=== PATIENT | male | born 1955 | race Hispanic/Latino ===

== ENCOUNTER 2024-07-15 20:05 | Inpatient (IN) | payer OTHER ==
[~2024-07-15] VITALS: Ht 172.7 cm; Wt 104.3 kg
[2024-07-15 20:20] VITALS: PULSE 83; RESP 18; TEMP 99.4
[2024-07-15] MEDS ORDERED: ONDANSETRON HCL INJ 2MG/ML 2ML 2 MG/ML VIAL IV PRN (22:00)
[2024-07-15] MEDS: SODIUM CHLORIDE 0.9% 1000ML 500 ML IV ONE (22:30)
[2024-07-15] MEDS: SODIUM CHLORIDE 0.9% 1000ML 1,000 ML IV SCH (23:40)
[2024-07-15] MEDS ORDERED: FLOMAX0.4 MG PO (23:46)
[2024-07-15] MEDS ORDERED: TIZANIDINE HCL4 MG PO (23:46)
[2024-07-15] MEDS ORDERED: LISINOPRIL10 MG PO (23:46)
[2024-07-16] VITALS (10 sets, daily range): BP systolic 94–130; BP diastolic 63–83; PULSE 74–104; RESP 18–22; TEMP 97.8–103.1; O2SAT 91–96
[2024-07-16] MEDS: ACETAMINOPHEN 325 MG TAB PO PRN (01:20)
[2024-07-16 12:23] LABS: BASOPHILS % 0.2 % (0.0-1.0); HEMATOCRIT 40.2 % (38.2-49.6); HEMOGLOBIN 13.2 g/dL (14.0-18.0); LYMPHOCYTES # (AUTO) 0.7 (1.0-3.2); LYMPHOCYTES % 14.7 % (18.0-39.1); MEAN CORPUSCULAR HEMOGLOBIN 29.8 pg (28-32); MEAN CORPUSCULAR HGB CONC 32.8 g/dL (31-35); MEAN CORPUSCULAR VOLUME 90.7 fL (81-99); MONOCYTES # (AUTO) 0.1 (0.2-0.8); MONOCYTES % 2.4 % (4.4-11.3); NEUTROPHILS # (AUTO) 3.9 (2.1-6.9); NEUTROPHILS % 82.5 % (38.7-80.0); RED BLOOD COUNT 4.43 x10e6/uL (4.3-5.7); RED CELL DISTRIBUTION WIDTH 13.1 % (11.7-14.4); WHITE BLOOD COUNT 4.68 x10e3/uL (4.8-10.8)
[2024-07-16] MEDS: GUAIFENESIN/DEXTROMETHORPHAN LIQD 5 ML UDC NG PRN (12:32)
[2024-07-16] MEDS: BENZONATATE 100 MG CAP PO PRN (12:33)
[2024-07-16 12:34] LABS: PLATELET COUNT 113 x10e3/uL (140-360)
[2024-07-16 12:43] LABS: ALBUMIN 3.2 g/dL (3.5-5.0); ALBUMIN/GLOBULIN RATIO 0.8 (0.8-2.0); ANION GAP 16.8 mmol/L (8-16); BILIRUBIN,TOTAL 0.5 mg/dL (0.2-1.2); CALCIUM 8.1 mg/dL (8.4-10.2); CREATININE, SERUM 1.3 mg/dL (0.72-1.25); MAGNESIUM 1.8 MG/DL (1.3-2.1); PHOSPHORUS 1.9 MG/DL (2.3-4.7); POTASSIUM 3.8 mmol/L (3.5-5.1); TOTAL PROTEIN 7.1 g/dL (6.5-8.1)
[2024-07-16 13:37] LABS: LYMPHOCYTES % (MANUAL) 20 % (19-48); MONOCYTES % (MANUAL) 3 % (3.4-9.0); NEUTROPHILS % (MANUAL) 75 % (40-74); PLATELET ESTIMATE SLIGHTLY DECREASED; PLATELET MORPHOLOGY COMMENT NORMAL; REACTIVE LYMPHOCYTES 2
[2024-07-16] MEDS ORDERED: SODIUM CHLORIDE 0.9% 250ML 250 ML ONE (20:04)
[2024-07-16] MEDS: TIZANIDINE HCL 4 MG TAB PO SCH (20:35)
[2024-07-17] VITALS (13 sets, daily range): BP systolic 96–120; BP diastolic 65–76; PULSE 63–94; RESP 18–20; TEMP 97–99.9; O2SAT 90–98
[2024-07-17 06:01] LABS: HEMATOCRIT 34.9 % (38.2-49.6); HEMOGLOBIN 11.6 g/dL (14.0-18.0); LYMPHOCYTES # (AUTO) 0.8 (1.0-3.2); LYMPHOCYTES % 13.2 % (18.0-39.1); MEAN CORPUSCULAR HEMOGLOBIN 29.4 pg (28-32); MEAN CORPUSCULAR HGB CONC 33.2 g/dL (31-35); MEAN CORPUSCULAR VOLUME 88.4 fL (81-99); MONOCYTES # (AUTO) 0.1 (0.2-0.8); MONOCYTES % 1.4 % (4.4-11.3); NEUTROPHILS # (AUTO) 4.8 (2.1-6.9); NEUTROPHILS % 84.9 % (38.7-80.0); PLATELET COUNT 118 x10e3/uL (140-360); RED BLOOD COUNT 3.95 x10e6/uL (4.3-5.7); RED CELL DISTRIBUTION WIDTH 13.2 % (11.7-14.4); WHITE BLOOD COUNT 5.68 x10e3/uL (4.8-10.8)
[2024-07-17 06:41] LABS: ALBUMIN 2.7 g/dL (3.5-5.0); ALBUMIN/GLOBULIN RATIO 0.8 (0.8-2.0); ANION GAP 16.1 mmol/L (8-16); BILIRUBIN,TOTAL 0.6 mg/dL (0.2-1.2); CALCIUM 7.9 mg/dL (8.4-10.2); CREATININE, SERUM 1.3 mg/dL (0.72-1.25); POTASSIUM 4.1 mmol/L (3.5-5.1); TOTAL PROTEIN 6.2 g/dL (6.5-8.1)
[2024-07-17] MEDS: TAMSULOSIN HCL 0.4 MG CAP PO SCH (08:51)
[2024-07-17] MEDS: LISINOPRIL 20 MG TAB PO SCH (08:52)
[2024-07-17 10:54] LABS: LYMPHOCYTES % (MANUAL) 10 % (19-48); MONOCYTES % (MANUAL) 2 % (3.4-9.0); NEUTROPHILS % (MANUAL) 82 % (40-74); REACTIVE LYMPHOCYTES 2
[2024-07-17 10:55] LABS: BAND NEUTROPHILS % (MANUAL) 4 %; PLATELET ESTIMATE SLIGHTLY DECREASED; PLATELET MORPHOLOGY COMMENT NORMAL
[2024-07-17] MEDS: ALBUTEROL/IPRATROPIUM 3 ML NEB ONE (12:06)
[2024-07-17] MEDS: ALBUTEROL/IPRATROPIUM 3 ML NEB NEB SCH (12:19)
[2024-07-18] VITALS (19 sets, daily range): BP systolic 101–163; BP diastolic 68–96; PULSE 63–101; RESP 16–32; TEMP 97.8–99.3; O2SAT 87–99
[2024-07-18] MEDS: FLUTICASONE PROPIONATE NASAL SPRAY NS SCH (16:47)
[2024-07-18] MEDS: METHYLPREDNISOLONE SOD SUCC 125 MG/2ML VIAL IV ONE (16:47)
[2024-07-18] MEDS: OSELTAMIVIR PHOSPHATE 75 MG CAP PO SCH (16:47)
[2024-07-18] MEDS ORDERED: IOPAMIDOL 370 MG/ML 100 ML INFUS..BTL INJ ONE (18:30)
[2024-07-18] MEDS: METHYLPREDNISOLONE SOD SUCC 40 MG/ML VIAL 1ML IV SCH (21:58)
[2024-07-19] VITALS (29 sets, daily range): BP systolic 94–163; BP diastolic 67–129; PULSE 44–100; RESP 16–42; TEMP 98–98.8; O2SAT 88–98
[2024-07-19 07:09] LABS: HEMATOCRIT 33.3 % (38.2-49.6); LYMPHOCYTES # (AUTO) 0.4 (1.0-3.2); LYMPHOCYTES % 8.7 % (18.0-39.1); MEAN CORPUSCULAR HEMOGLOBIN 29.7 pg (28-32); MONOCYTES # (AUTO) 0.1 (0.2-0.8); MONOCYTES % 2.8 % (4.4-11.3); NEUTROPHILS # (AUTO) 3.8 (2.1-6.9); NEUTROPHILS % 87.8 % (38.7-80.0); PLATELET COUNT 132 x10e3/uL (140-360); RED CELL DISTRIBUTION WIDTH 13.4 % (11.7-14.4); WHITE BLOOD COUNT 4.36 x10e3/uL (4.8-10.8)
[2024-07-19 07:51] LABS: ALBUMIN 2.4 g/dL (3.5-5.0); ALBUMIN/GLOBULIN RATIO 0.6 (0.8-2.0); ANION GAP 15.5 mmol/L (8-16); BILIRUBIN,TOTAL 0.6 mg/dL (0.2-1.2); CALCIUM 8.3 mg/dL (8.4-10.2); CREATININE, SERUM 0.78 mg/dL (0.72-1.25); POTASSIUM 3.5 mmol/L (3.5-5.1); TOTAL PROTEIN 6.6 g/dL (6.5-8.1)
[2024-07-19 09:33] LABS: CORONAVIRUS COVID-19 AG NEGATIVE (NEGATIVE); INFLUENZA A AG NEGATIVE (NEGATIVE); INFLUENZA B AG NEGATIVE (NEGATIVE)
[2024-07-19 09:35] LABS: BILIRUBIN,URINE NEGATIVE (NEGATIVE); CLARITY,URINE CLEAR (CLEAR); COLOR,URINE YELLOW (YELLOW); GLUCOSE, URINE NEGATIVE (NEGATIVE); KETONES,URINE TRACE (NEGATIVE); LEUKOCYTE ESTERASE ,URINE NEGATIVE (NEGATIVE); NITRITE,URINE NEGATIVE (NEGATIVE); PH,URINE 6 (5 - 7); PROTEIN,URINE DIPSTICK >=300 (NEGATIVE); URINE UROBILINOGEN 1 mg/dL (0.2 - 1)
[2024-07-19 09:36] LABS: BACTERIA,URINE FEW /HPF; EPITHELIAL CELLS,URINE RARE /LPF; RBC,URINE 0-5 /HPF (0-5)
[2024-07-19 10:01] LABS: LYMPHOCYTES % (MANUAL) 8 % (19-48); MONOCYTES % (MANUAL) 6 % (3.4-9.0); NEUTROPHILS % (MANUAL) 86 % (40-74)
[2024-07-19 10:02] LABS: PLATELET ESTIMATE SLIGHTLY DECREASED; PLATELET MORPHOLOGY COMMENT NORMAL; RBC MORPHOLOGY COMMENT NORMAL
[2024-07-19] MEDS: ALBUTEROL/IPRATROPIUM 3 ML NEB NEB PRN (12:43)
[2024-07-19] MEDS: DEXMEDETOMIDINE 400MCG/NS100ML 100 ML IV PRN (16:22)
[2024-07-19] MEDS: METHYLPREDNISOLONE SOD SUCC 40 MG/ML VIAL 1ML IV SCH (16:24)
[2024-07-19] MEDS: ENOXAPARIN SOD INJ 40 MG/0.4 ML SYR SC SCH (17:04)
[2024-07-20] VITALS (79 sets, daily range): BP systolic 61–168; BP diastolic 48–109; PULSE 45–120; RESP 15–37; TEMP 97.9–100; O2SAT 86–100
[2024-07-20] MEDS: PROPOFOL IV EMULSION 10MG/ML 100 ML IV PRN (06:34)
[2024-07-20] MEDS: VECURONIUM BROMIDE FOR INJ 20 MG VIAL IV ONE (06:40)
[2024-07-20] MEDS: SODIUM CHLORIDE 0.9% 500ML 500 ML IV ONE ×2 (07:13→09:40)
[2024-07-20] MEDS: NOREPINEPHRINE 8 MG/D5W 250 ML 250 ML IV SCH ×2 (07:14→09:47)
[2024-07-20] MEDS ORDERED: ROCURONIUM 1250MG/NS 250 250 ML IV PRN (07:15)
[2024-07-20 07:23] LABS: BASOPHILS % 0.1 % (0.0-1.0); HEMATOCRIT 33.3 % (38.2-49.6); HEMOGLOBIN 10.6 g/dL (14.0-18.0); LYMPHOCYTES # (AUTO) 0.5 (1.0-3.2); LYMPHOCYTES % 6.3 % (18.0-39.1); MEAN CORPUSCULAR HEMOGLOBIN 29.4 pg (28-32); MEAN CORPUSCULAR HGB CONC 31.8 g/dL (31-35); MEAN CORPUSCULAR VOLUME 92.2 fL (81-99); MONOCYTES # (AUTO) 0.3 (0.2-0.8); MONOCYTES % 3.6 % (4.4-11.3); NEUTROPHILS # (AUTO) 7.6 (2.1-6.9); NEUTROPHILS % 89.1 % (38.7-80.0); RED BLOOD COUNT 3.61 x10e6/uL (4.3-5.7); RED CELL DISTRIBUTION WIDTH 13.9 % (11.7-14.4)
[2024-07-20 07:24] LABS: WHITE BLOOD COUNT 8.54 x10e3/uL (4.8-10.8)
[2024-07-20 07:30] LABS: PLATELET COUNT 82 x10e3/uL (140-360)
[2024-07-20 07:36] LABS: ALBUMIN/GLOBULIN RATIO 0.6 (0.8-2.0); BILIRUBIN,TOTAL 1.2 mg/dL (0.2-1.2); CALCIUM 7.2 mg/dL (8.4-10.2); CREATININE, SERUM 2.12 mg/dL (0.72-1.25); TOTAL PROTEIN 5.5 g/dL (6.5-8.1)
[2024-07-20 08:11] LABS: ABG PH 7.17 (7.35-7.45)
[2024-07-20 08:12] LABS: ABG HCO3 24 mmol/L (22-26); ABG PCO2 65 mmHg (35-45); ABG PO2 154 mmHg (80-105); ABG TCO2 25
[2024-07-20] MEDS: FENTANYL 2000MCG/NS 250 250 ML IV PRN (08:33)
[2024-07-20] MEDS: FENTANYL CITRATE/PF 100MCG/2 ML INJ ONE (08:45)
[2024-07-20] MEDS: SODIUM CHLORIDE 0.45% 1,000 ML IV ONE (08:46)
[2024-07-20 09:29] LABS: ABG HCO3 24 mmol/L (22-26); ABG PCO2 60 mmHg (35-45); ABG PO2 102 mmHg (80-105); ABG TCO2 25
[2024-07-20] MEDS: SODIUM CHLORIDE 0.9% 1000ML 1,000 ML ONE (09:40)
[2024-07-20 10:45] LABS: ABG HCO3 24 mmol/L (22-26); ABG PCO2 53 mmHg (35-45); ABG PH 7.26 (7.35-7.45); ABG PO2 90 mmHg (80-105); ABG TCO2 26
[2024-07-20] MEDS ORDERED: MIDAZOLAM HCL 2 MG/2 ML VIAL ONE (11:16)
[2024-07-20] MEDS ORDERED: SUCCINYLCHOLINE CHLORIDE 20 MG/ML 10ML VIAL ONE (11:16)
[2024-07-20] MEDS ORDERED: WATER STERILE 10 ML VIAL ONE (11:16)
[2024-07-20] MEDS ORDERED: ETOMIDATE 2 MG/ML 10 ML INJ IV ONE (11:16)
[2024-07-20] MEDS ORDERED: VECURONIUM BROMIDE FOR INJ 20 MG VIAL ONE (11:16)
[2024-07-20] MEDS: ALBUMIN 25% 12.5GM 0.25 GM/ML BTL IV ONE (12:02)
[2024-07-20] MEDS: FUROSEMIDE INJ 10 MG/ML 4 ML VIAL IV ONE ×2 (15:13→17:32)
[2024-07-20 16:32] LABS: ANTI-MITOCHONDRIAL AB SCREEN <20.0 Units (0.0-20.0); SMOOTH MUSCLE ANTIBODY(ACTIN) 8 Units (0-19)
[2024-07-20] MEDS: LACTATED RINGER'S 1,000 ML INJ SCH (17:32)
[2024-07-20 18:34] LABS: CORONAVIRUS COVID-19 AG NEGATIVE (NEGATIVE); INFLUENZA A AG NEGATIVE (NEGATIVE); INFLUENZA B AG NEGATIVE (NEGATIVE)
[2024-07-21] VITALS (90 sets, daily range): BP systolic 91–179; BP diastolic 55–92; PULSE 67–93; RESP 16–37; TEMP 97.9–99; O2SAT 98–100
[2024-07-21] MEDS: FUROSEMIDE INJ 100 MG in SODIUM CHLORIDE 0.9% 90 ML IV SCH (00:42)
[2024-07-21 06:48] LABS: BASOPHILS % 0.2 % (0.0-1.0); HEMATOCRIT 35.9 % (38.2-49.6); HEMOGLOBIN 11.3 g/dL (14.0-18.0); LYMPHOCYTES # (AUTO) 0.5 (1.0-3.2); LYMPHOCYTES % 4.7 % (18.0-39.1); MEAN CORPUSCULAR HEMOGLOBIN 29.4 pg (28-32); MEAN CORPUSCULAR HGB CONC 31.5 g/dL (31-35); MEAN CORPUSCULAR VOLUME 93.2 fL (81-99); MONOCYTES # (AUTO) 0.4 (0.2-0.8); MONOCYTES % 3.1 % (4.4-11.3); NEUTROPHILS % 89.3 % (38.7-80.0); PLATELET COUNT 61 x10e3/uL (140-360); RED BLOOD COUNT 3.85 x10e6/uL (4.3-5.7); RED CELL DISTRIBUTION WIDTH 15.1 % (11.7-14.4); WHITE BLOOD COUNT 11.16 x10e3/uL (4.8-10.8)
[2024-07-21 07:11] LABS: ALBUMIN 2.5 g/dL (3.5-5.0); ALBUMIN/GLOBULIN RATIO 0.7 (0.8-2.0); ANION GAP 21.4 mmol/L (8-16); BILIRUBIN,TOTAL 1.3 mg/dL (0.2-1.2); CALCIUM 7.6 mg/dL (8.4-10.2); CREATININE, SERUM 5.21 mg/dL (0.72-1.25); POTASSIUM 4.4 mmol/L (3.5-5.1); TOTAL PROTEIN 5.9 g/dL (6.5-8.1)
[2024-07-21 07:46] LABS: LYMPHOCYTES % (MANUAL) 2 % (19-48); MONOCYTES % (MANUAL) 1 % (3.4-9.0); NEUTROPHILS % (MANUAL) 97 % (40-74); NUCLEATED RED BLOOD CELLS 1; PLATELET ESTIMATE MODERATELY DECREASED; PLATELET MORPHOLOGY COMMENT FEW LARGE
[2024-07-21 07:47] LABS: RBC MORPHOLOGY COMMENT NORMAL
[2024-07-21 09:01] LABS: ABG HCO3 23 mmol/L (22-26); ABG PCO2 49 mmHg (35-45); ABG PH 7.28 (7.35-7.45); ABG PO2 248 mmHg (80-105); ABG TCO2 24
[2024-07-21 09:11] LABS: HIV 1&2 AB SCREEN NON-REACTIVE (NONREACTIVE); HIV- 1 P24 AG SCREEN NON-REACTIVE (NONREACTIVE)
[2024-07-21 10:27] LABS: HEPATITIS A ANTIBODY IGM (P) Negative; HEPATITIS B CORE IGM (P) Negative; HEPATITIS B SURFACE AG (P) Negative
[2024-07-21 10:28] LABS: HEPATITIS C ANTIBODY Non Reactive
[2024-07-21] MEDS ORDERED: SODIUM CITRATE 10 GM/250 ML BAG HE PRN (16:15)
[2024-07-21] MEDS ORDERED: MANNITOL 25% 12.5GM/50 ML VIAL IV PRN (16:45)
[2024-07-21] MEDS ORDERED: SODIUM CHLORIDE 0.9% 1000ML 2,000 ML IV PRN (16:45)
[2024-07-21] MEDS: MANNITOL 25% 12.5GM/50ML 100 ML ONE (19:51)
[2024-07-21] MEDS: SODIUM CHLORIDE 0.9% 1000ML 2,000 ML ONE (19:51)
[2024-07-22] VITALS (87 sets, daily range): BP systolic 79–135; BP diastolic 53–83; PULSE 66–127; RESP 15–36; TEMP 98.8–99.8; O2SAT 97–100
[2024-07-22 05:10] LABS: MYCOPLASMA PNEUMO IGG 120 U/mL (0-99); MYCOPLASMA PNEUMO IGM <770 U/mL (0-769)
[2024-07-22 06:28] LABS: BASOPHILS % 0.1 % (0.0-1.0); HEMATOCRIT 29.3 % (38.2-49.6); HEMOGLOBIN 9.8 g/dL (14.0-18.0); LYMPHOCYTES # (AUTO) 0.4 (1.0-3.2); MEAN CORPUSCULAR HEMOGLOBIN 29.5 pg (28-32); MEAN CORPUSCULAR HGB CONC 33.4 g/dL (31-35); MEAN CORPUSCULAR VOLUME 88.3 fL (81-99); MONOCYTES # (AUTO) 0.3 (0.2-0.8); MONOCYTES % 2.9 % (4.4-11.3); NEUTROPHILS # (AUTO) 9.3 (2.1-6.9); NEUTROPHILS % 85.6 % (38.7-80.0); PLATELET COUNT 62 x10e3/uL (140-360); RED BLOOD COUNT 3.32 x10e6/uL (4.3-5.7); RED CELL DISTRIBUTION WIDTH 14.6 % (11.7-14.4); WHITE BLOOD COUNT 10.86 x10e3/uL (4.8-10.8)
[2024-07-22 06:54] LABS: ALBUMIN/GLOBULIN RATIO 0.6 (0.8-2.0); ANION GAP 20.5 mmol/L (8-16); BILIRUBIN,TOTAL 1.4 mg/dL (0.2-1.2); CALCIUM 7.6 mg/dL (8.4-10.2); CREATININE, SERUM 5.97 mg/dL (0.72-1.25); POTASSIUM 4.5 mmol/L (3.5-5.1); TOTAL PROTEIN 5.3 g/dL (6.5-8.1)
[2024-07-22 06:54] LABS: ABG HCO3 25 mmol/L (22-26); ABG PCO2 41 mmHg (35-45); ABG PO2 203 mmHg (80-105); ABG TCO2 26
[2024-07-22 09:51] LABS: ABG HCO3 31 mmol/L (22-26); ABG PCO2 41 mmHg (35-45); ABG PH 7.47 (7.35-7.45); ABG PO2 154 mmHg (80-105); ABG TCO2 32
[2024-07-22] MEDS: OSELTAMIVIR PHOSPHATE 30 MG CAPSULE PO SCH (10:42)
[2024-07-22 12:53] LABS: ABG PCO2 44 mmHg (35-45); ABG PH 7.43 (7.35-7.45)
[2024-07-22 12:54] LABS: ABG HCO3 29 mmol/L (22-26); ABG PO2 95 mmHg (80-105); ABG TCO2 30
[2024-07-22] MEDS: ENOXAPARIN SOD INJ 40 MG/0.4 ML SYR SC SCH (16:47)
[2024-07-22] MEDS ORDERED: AMIODARONE HCL 150 MG/100 ML BAG IV ONE (18:30)
[2024-07-22] MEDS: AMIODARONE HCL 100 ML IV ONE (18:48)
[2024-07-22] MEDS: AMIODARONE 900MG 500 ML IV SCH (19:21)
[2024-07-23] VITALS (78 sets, daily range): BP systolic 77–152; BP diastolic 50–102; PULSE 63–115; RESP 11–29; TEMP 97.4–100.4; O2SAT 96–100
[2024-07-23] MEDS: METHYLPREDNISOLONE SOD SUCC 40 MG/ML VIAL 1ML IV SCH (06:32)
[2024-07-23 07:27] LABS: BASOPHILS % 0.2 % (0.0-1.0); HEMATOCRIT 29.6 % (38.2-49.6); HEMOGLOBIN 9.8 g/dL (14.0-18.0); LYMPHOCYTES # (AUTO) 0.6 (1.0-3.2); LYMPHOCYTES % 3.7 % (18.0-39.1); MEAN CORPUSCULAR HGB CONC 33.1 g/dL (31-35); MEAN CORPUSCULAR VOLUME 87.6 fL (81-99); MONOCYTES # (AUTO) 0.7 (0.2-0.8); MONOCYTES % 4.2 % (4.4-11.3); NEUTROPHILS # (AUTO) 13.4 (2.1-6.9); NEUTROPHILS % 85.5 % (38.7-80.0); PLATELET COUNT 66 x10e3/uL (140-360); RED BLOOD COUNT 3.38 x10e6/uL (4.3-5.7); RED CELL DISTRIBUTION WIDTH 14.8 % (11.7-14.4); WHITE BLOOD COUNT 15.68 x10e3/uL (4.8-10.8)
[2024-07-23 07:47] LABS: ALBUMIN 1.9 g/dL (3.5-5.0); ALBUMIN/GLOBULIN RATIO 0.5 (0.8-2.0); ANION GAP 20.8 mmol/L (8-16); CALCIUM 7.8 mg/dL (8.4-10.2); CREATININE, SERUM 5.77 mg/dL (0.72-1.25); POTASSIUM 4.8 mmol/L (3.5-5.1); TOTAL PROTEIN 5.5 g/dL (6.5-8.1)
[2024-07-23] MEDS ORDERED: AMIODARONE 900MG 500 ML IV ONE (09:39)
[2024-07-23] MEDS: AMIODARONE 900MG 500 ML IV SCH (10:09)
[2024-07-23 13:31] LABS: ABG HCO3 24 mmol/L (22-26); ABG PCO2 44 mmHg (35-45); ABG PH 7.35 (7.35-7.45); ABG PO2 145 mmHg (80-105); ABG TCO2 25
[2024-07-23 13:51] LABS: BAND NEUTROPHILS % (MANUAL) 3 %; LYMPHOCYTES % (MANUAL) 3 % (19-48); MONOCYTES % (MANUAL) 2 % (3.4-9.0); MYELOCYTES % (MANUAL) 1 % (0-0); NEUTROPHILS % (MANUAL) 91 % (40-74); NUCLEATED RED BLOOD CELLS 13
[2024-07-23 13:52] LABS: HYPOCHROMASIA SLIGHT; MICROCYTOSIS SLIGHT; PLATELET ESTIMATE MARKEDLY DECREASED; PLATELET MORPHOLOGY COMMENT FEW LARGE
[2024-07-23] MEDS: AMIODARONE HCL 200 MG TAB PO SCH (17:04)
[2024-07-24] VITALS (83 sets, daily range): BP systolic 79–157; BP diastolic 46–80; PULSE 76–103; RESP 19–50; TEMP 97.7–100.2; O2SAT 91–100
[2024-07-24 00:10] LABS: TOTAL PROTEIN, URINE 564.3 mg/dL (1-14)
[2024-07-24 00:40] LABS: EOSINOPHIL SMEAR,URINE NONE SEEN (NONE SEEN)
[2024-07-24 06:59] LABS: INR 1.4; PARTIAL THROMBOPLASTIN TIME 31.8 seconds (23.8-35.5); PROTHROMBIN TIME 17.9 seconds (11.9-14.5)
[2024-07-24 07:02] LABS: BASOPHILS % 0.3 % (0.0-1.0); EOSINOPHILS % 0.1 % (0.0-6.0); HEMATOCRIT 28.1 % (38.2-49.6); HEMOGLOBIN 9.3 g/dL (14.0-18.0); LYMPHOCYTES # (AUTO) 0.6 (1.0-3.2); LYMPHOCYTES % 3.7 % (18.0-39.1); MEAN CORPUSCULAR HEMOGLOBIN 29.5 pg (28-32); MEAN CORPUSCULAR HGB CONC 33.1 g/dL (31-35); MEAN CORPUSCULAR VOLUME 89.2 fL (81-99); MONOCYTES # (AUTO) 0.6 (0.2-0.8); MONOCYTES % 3.5 % (4.4-11.3); NEUTROPHILS # (AUTO) 13.9 (2.1-6.9); NEUTROPHILS % 87.2 % (38.7-80.0); PLATELET COUNT 52 x10e3/uL (140-360); RED BLOOD COUNT 3.15 x10e6/uL (4.3-5.7); RED CELL DISTRIBUTION WIDTH 15.1 % (11.7-14.4)
[2024-07-24 07:28] LABS: ALBUMIN 1.8 g/dL (3.5-5.0); ALBUMIN/GLOBULIN RATIO 0.5 (0.8-2.0); ANION GAP 19.9 mmol/L (8-16); BILIRUBIN,TOTAL 4.1 mg/dL (0.2-1.2); CALCIUM 7.8 mg/dL (8.4-10.2); CREATININE, SERUM 5.23 mg/dL (0.72-1.25); POTASSIUM 4.9 mmol/L (3.5-5.1); TOTAL PROTEIN 5.5 g/dL (6.5-8.1)
[2024-07-24 10:10] LABS: ABG HCO3 26 mmol/L (22-26); ABG PCO2 42 mmHg (35-45); ABG PO2 83 mmHg (80-105); ABG TCO2 27
[2024-07-24] MEDS: MIDODRINE HCL 5 MG TABLET PO SCH (16:46)
[2024-07-24 20:09] LABS: COMPLEMENT C3 108 mg/dL (82-167)
[2024-07-24 21:40] LABS: ANTI DNA DS ANTIBODY 1 IU/mL (0-9); COMPLEMENT C4 15 mg/dL (12-38)
[2024-07-25] VITALS (90 sets, daily range): BP systolic 57–132; BP diastolic 34–95; PULSE 45–140; RESP 17–29; TEMP 98.5–99.6; O2SAT 79–100
[2024-07-25 06:19] LABS: BASOPHILS % 0.1 % (0.0-1.0); EOSINOPHILS % 0.1 % (0.0-6.0); HEMATOCRIT 24.4 % (38.2-49.6); LYMPHOCYTES # (AUTO) 0.5 (1.0-3.2); LYMPHOCYTES % 2.5 % (18.0-39.1); MEAN CORPUSCULAR HEMOGLOBIN 28.9 pg (28-32); MEAN CORPUSCULAR HGB CONC 33.6 g/dL (31-35); MONOCYTES # (AUTO) 0.6 (0.2-0.8); NEUTROPHILS # (AUTO) 16.7 (2.1-6.9); NEUTROPHILS % 91.4 % (38.7-80.0); RED BLOOD COUNT 2.84 x10e6/uL (4.3-5.7); RED CELL DISTRIBUTION WIDTH 15.8 % (11.7-14.4); WHITE BLOOD COUNT 18.31 x10e3/uL (4.8-10.8)
[2024-07-25 06:31] LABS: HEMOGLOBIN 8.2 g/dL (14.0-18.0); MEAN CORPUSCULAR VOLUME 85.9 fL (81-99)
[2024-07-25 06:32] LABS: PLATELET COUNT 62 x10e3/uL (140-360)
[2024-07-25 06:37] LABS: ABG HCO3 21 mmol/L (22-26); ABG PCO2 42 mmHg (35-45); ABG PH 7.31 (7.35-7.45); ABG PO2 67 mmHg (80-105); ABG TCO2 22
[2024-07-25 07:00] LABS: ALBUMIN 1.4 g/dL (3.5-5.0); ALBUMIN/GLOBULIN RATIO 0.4 (0.8-2.0); ANION GAP 24.5 mmol/L (8-16); BILIRUBIN,TOTAL 6.9 mg/dL (0.2-1.2); CALCIUM 7.8 mg/dL (8.4-10.2); CREATININE, SERUM 7.68 mg/dL (0.72-1.25); TOTAL PROTEIN 5.1 g/dL (6.5-8.1)
[2024-07-25 07:03] LABS: POTASSIUM 5.5 mmol/L (3.5-5.1)
[2024-07-25 07:41] LABS: BAND NEUTROPHILS % (MANUAL) 8 %; LYMPHOCYTES % (MANUAL) 3 % (19-48); METAMYELOCYTES % (MANUAL) 2 % (0-0); MONOCYTES % (MANUAL) 2 % (3.4-9.0); MYELOCYTES % (MANUAL) 3 % (0-0); NEUTROPHILS % (MANUAL) 82 % (40-74); NUCLEATED RED BLOOD CELLS 1
[2024-07-25 07:42] LABS: PLATELET ESTIMATE MODERATELY DECREASED; PLATELET MORPHOLOGY COMMENT FEW LARGE
[2024-07-25 07:43] LABS: POLYCHROMASIA FEW
[2024-07-25] MEDS: METOPROLOL TARTRATE INJ 1 MG/ML VIAL IV ONE (08:24)
[2024-07-25] MEDS: ALBUMIN 25% 25GM 100ML 0.25 GM/ML BTL IV ONE (08:24)
[2024-07-25] MEDS: DIGOXIN INJ 0.25 MG/ML 2 ML AMP IV ONE ×4 (08:44→23:50)
[2024-07-25] MEDS: PROPOFOL IV EMULSION 10MG/ML 100 ML IV PRN (08:54)
[2024-07-25] MEDS: AMIODARONE HCL 200 MG TAB PO SCH (09:05)
[2024-07-25] MEDS ORDERED: PHYTONADIONE 10 MG/ML AMP SQ ONE (09:30)
[2024-07-25] MEDS ORDERED: EPOETIN ALFA-EPBX 10,000 UNIT/ML VIAL SC SCH (09:30)
[2024-07-25] MEDS: PHENYLEPHRINE 10MG/ML VIAL 40 MG in DEXTROSE 5% 250ML 246 ML IV SCH (09:49)
[2024-07-25 15:23] LABS: IRON 19 ug/dL (65-175); TRANSFERRIN < 70 mg/dL (174-364)
[2024-07-25] MEDS: FUROSEMIDE INJ 10 MG/ML 4 ML VIAL IV ONE (15:23)
[2024-07-25] MEDS: SOD POLYSTYRENE SULFONATE SUSP 15 GM/60 ML BTL PO ONE (15:25)
[2024-07-25] MEDS ORDERED: ALBUMIN 25% 25GM 100ML 0.25 GM/ML BTL IV ONE (15:30)
[2024-07-25] MEDS: ALBUMIN 25% 25GM 100ML 100 ML IV ONE (15:40)
[2024-07-25] MEDS: PREDNISONE 20 MG TAB PO SCH (17:06)
[2024-07-25 18:54] LABS: TOTAL PROTEIN, URINE 120.5 mg/dL (1-14)
[2024-07-25] MEDS ORDERED: DIGOXIN INJ 0.25 MG/ML 2 ML AMP IV ONE (23:30)
[2024-07-26] VITALS (75 sets, daily range): BP systolic 63–137; BP diastolic 5–83; PULSE 33–137; RESP 21–28; TEMP 98–100.4; O2SAT 91–100
[2024-07-26] MEDS: FENTANYL 2000MCG/NS 250 250 ML IV PRN (01:25)
[2024-07-26 06:49] LABS: BASOPHILS % 0.1 % (0.0-1.0); HEMATOCRIT 24.3 % (38.2-49.6); LYMPHOCYTES # (AUTO) 0.4 (1.0-3.2); LYMPHOCYTES % 2.4 % (18.0-39.1); MEAN CORPUSCULAR HEMOGLOBIN 28.6 pg (28-32); MEAN CORPUSCULAR HGB CONC 33.3 g/dL (31-35); MEAN CORPUSCULAR VOLUME 85.9 fL (81-99); MONOCYTES # (AUTO) 0.7 (0.2-0.8); MONOCYTES % 4.1 % (4.4-11.3); NEUTROPHILS # (AUTO) 14.7 (2.1-6.9); NEUTROPHILS % 89.4 % (38.7-80.0); RED BLOOD COUNT 2.83 x10e6/uL (4.3-5.7); WHITE BLOOD COUNT 16.49 x10e3/uL (4.8-10.8)
[2024-07-26 06:50] LABS: ABG PH 7.21 (7.35-7.45)
[2024-07-26 06:51] LABS: ABG HCO3 19 mmol/L (22-26); ABG PCO2 46 mmHg (35-45); ABG PO2 68 mmHg (80-105); ABG TCO2 20
[2024-07-26 06:55] LABS: HEMOGLOBIN 8.1 g/dL (14.0-18.0); PLATELET COUNT 133 x10e3/uL (140-360)
[2024-07-26 07:21] LABS: ALANINE AMINOTRANSFERASE 83 IU/L (0-55); ALBUMIN 1.8 g/dL (3.5-5.0); ALBUMIN/GLOBULIN RATIO 0.4 (0.8-2.0); ALKALINE PHOSPHATASE 58 IU/L (40-150); ANION GAP 29.6 mmol/L (8-16); BILIRUBIN,TOTAL 8.4 mg/dL (0.2-1.2); CALCIUM 7.6 mg/dL (8.4-10.2); CARBON DIOXIDE 15 mmol/L (22-29); CHLORIDE 91 mmol/L (98-107); EST GLOMERULAR FILTRATION RATE 6 ML/MIN (>=60); GLUCOSE 205 mg/dL (74-118); SODIUM 129 mmol/L (136-145); TOTAL PROTEIN 5.9 g/dL (6.5-8.1)
[2024-07-26 07:25] LABS: BLOOD UREA NITROGEN 127 mg/dL (7-26)
[2024-07-26 07:26] LABS: BILIRUBIN,DIRECT 6.7 mg/dL (0.0-0.5); BILIRUBIN,INDIRECT 1.8 mg/dL (0.3-1.2); BILIRUBIN,TOTAL 8.5 mg/dL (0.2-1.2)
[2024-07-26 07:27] LABS: POTASSIUM 6.6 mmol/L (3.5-5.1)
[2024-07-26] MEDS ORDERED: SODIUM BICARBONATE 8.4% SYRING 100 ML ONE ×2 (07:29→20:45)
[2024-07-26] MEDS ORDERED: DEXTROSE 50% SYRINGE 50 ML IV PRN (07:45)
[2024-07-26] MEDS: SODIUM BICARBONATE 8.4% INJ 50 ML SYR IV ONE (07:53)
[2024-07-26] MEDS: DEXTROSE 50% SYRINGE 50 ML IV ONE (08:17)
[2024-07-26] MEDS: INSULIN REGULAR, HUMAN 100 UNIT/1 ML IV ONE (08:18)
[2024-07-26] MEDS ORDERED: HEPARIN SOD (PORCINE) 1000 UNIT/ML SDV IV PRN (09:15)
[2024-07-26] MEDS ORDERED: ALBUMIN 25% 12.5GM 0.25 GM/ML BTL IV PRN (09:15)
[2024-07-26 09:55] LABS: BAND NEUTROPHILS % (MANUAL) 14 %; LYMPHOCYTES % (MANUAL) 5 % (19-48); MONOCYTES % (MANUAL) 4 % (3.4-9.0); MYELOCYTES % (MANUAL) 1 % (0-0); NEUTROPHILS % (MANUAL) 76 % (40-74); NUCLEATED RED BLOOD CELLS 3
[2024-07-26 09:56] LABS: PLATELET ESTIMATE ADEQUATE; PLATELET MORPHOLOGY COMMENT NORMAL; POLYCHROMASIA FEW
[2024-07-26 10:27] LABS: HEPATITIS B CORE AB TOTAL Negative; HEPATITIS B SURFACE AG (P) Negative
[2024-07-26] MEDS: INSULIN REGULAR, HUMAN 100 UNIT/1 ML SQ SCH (13:14)
[2024-07-26 15:13] LABS: cANCA TITER <1:20 titer (Neg:<1:20)
[2024-07-26 15:15] LABS: ABG HCO3 23 mmol/L (22-26); ABG PCO2 44 mmHg (35-45); ABG PH 7.32 (7.35-7.45); ABG PO2 81 mmHg (80-105); ABG TCO2 24
[2024-07-26] MEDS: SOD POLYSTYRENE SULFONATE SUSP 15 GM/60 ML BTL PO ONE (15:47)
[2024-07-26] MEDS: SODIUM BICARBONATE 8.4% INJ 50 ML SYR IV STA ×2 (15:47→20:50)
[2024-07-26] MEDS: CALCIUM CHLORIDE 13.6 MEQ in SODIUM CHLORIDE 0.9% 100 ML IV ONE (16:06)
[2024-07-26 16:14] LABS: ATYPICAL pANCA TITER <1:20 titer (Neg:<1:20); pANCA TITER <1:20 titer (Neg:<1:20)
[2024-07-26] MEDS: LEVALBUTEROL HCL SOLN NEBU 0.63 MG/3 ML NEB ONE ×2 (16:29→19:05)
[2024-07-26] MEDS ORDERED: SODIUM CHLORIDE 0.9% 500ML 500 ML IV ONE ×2 (17:00→19:00)
[2024-07-26] MEDS: Vancomycin IV 1 GM in SODIUM CHLORIDE 0.9% 250ML 250 ML IV ONE (19:30)
[2024-07-26] MEDS ORDERED: ALTEPLASE RECOMBINANT 2 MG/2 ML VIAL ONE (19:32)
[2024-07-26] MEDS: ALBUMIN 25% 25GM 100ML 0.25 GM/ML BTL IV ONE (19:32)
[2024-07-26] MEDS: ALTEPLASE RECOMBINANT 2 MG/2 ML VIAL IV ONE (19:39)
[2024-07-26 20:45] LABS: ABG HCO3 20 mmol/L (22-26); ABG PCO2 44 mmHg (35-45); ABG PH 7.27 (7.35-7.45); ABG PO2 66 mmHg (80-105); ABG TCO2 21
[2024-07-26] MEDS ORDERED: CALCIUM CHLORIDE 10% SYRINGE 10 ML IV ONE (20:45)
[2024-07-26] MEDS: CALCIUM CHLORIDE 10% 1.36 MEQ/ML 10ML SYR IV STA (20:50)
[2024-08-02 05:38] LABS: ABG HCO3 19 mmol/L (22-26); ABG PCO2 47 mmHg (35-45); ABG PH 7.21 (7.35-7.45); ABG PO2 68 mmHg (80-105); ABG TCO2 20
[2024-08-02 05:38] LABS: ABG HCO3 20 mmol/L (22-26); ABG PCO2 44 mmHg (35-45); ABG PH 7.27 (7.35-7.45); ABG PO2 66 mmHg (80-105); ABG TCO2 21
[2024-08-02 05:38] LABS: ABG HCO3 23 mmol/L (22-26); ABG PCO2 44 mmHg (35-45); ABG PH 7.32 (7.35-7.45); ABG PO2 81 mmHg (80-105); ABG TCO2 24
[2024-08-03 05:50] LABS: ABG PH 7.17 (7.35-7.45)
[2024-08-03 05:50] LABS: ABG HCO3 24 mmol/L (22-26); ABG PCO2 44 mmHg (35-45); ABG PH 7.35 (7.35-7.45); ABG PO2 145 mmHg (80-105); ABG TCO2 25
[2024-08-03 05:50] LABS: ABG HCO3 26 mmol/L (22-26); ABG PCO2 42 mmHg (35-45); ABG PO2 83 mmHg (80-105); ABG TCO2 27
[2024-08-03 05:50] LABS: ABG HCO3 29 mmol/L (22-26); ABG PCO2 44 mmHg (35-45); ABG PH 7.43 (7.35-7.45); ABG PO2 95 mmHg (80-105); ABG TCO2 30
[2024-08-03 05:50] LABS: ABG HCO3 25 mmol/L (22-26); ABG PCO2 41 mmHg (35-45); ABG PO2 203 mmHg (80-105); ABG TCO2 26
[2024-08-03 05:50] LABS: ABG HCO3 23 mmol/L (22-26); ABG PCO2 49 mmHg (35-45); ABG PH 7.28 (7.35-7.45); ABG PO2 248 mmHg (80-105); ABG TCO2 24
[2024-08-03 05:50] LABS: ABG HCO3 21 mmol/L (22-26); ABG PCO2 42 mmHg (35-45); ABG PH 7.31 (7.35-7.45); ABG PO2 67 mmHg (80-105); ABG TCO2 22
[2024-08-03 05:50] LABS: ABG HCO3 24 mmol/L (22-26); ABG PCO2 60 mmHg (35-45); ABG PO2 102 mmHg (80-105); ABG TCO2 25
[2024-08-03 05:50] LABS: ABG HCO3 24 mmol/L (22-26); ABG PCO2 54 mmHg (35-45); ABG PH 7.26 (7.35-7.45); ABG PO2 90 mmHg (80-105); ABG TCO2 26
[2024-08-03 05:50] LABS: ABG HCO3 30 mmol/L (22-26); ABG PCO2 41 mmHg (35-45); ABG PH 7.47 (7.35-7.45); ABG PO2 154 mmHg (80-105); ABG TCO2 31
== END 2024-07-26 22:22 | disposition short-term general hospital (02) | DRG 870 ==
LOC: FSED 20:19 → MED/SURG2 21:46 → ICU 07-18 20:22
PROVIDERS: ADMIT Internal Medicine; ATTEND Internal Medicine
PROC: 3E0333Z Introduction of Anti-inflammatory into Peripheral Vein, Percutaneous Approach (ICD-10-PCS; principal; 2024-07-16)
PROC: 5A0945A Assistance with Respiratory Ventilation, 24-96 Consecutive Hours, High Flow/Velocity Cannula (ICD-10-PCS; 2024-07-17)
PROC: 02HV33Z Insertion of Infusion Device into Superior Vena Cava, Percutaneous Approach (ICD-10-PCS; 2024-07-19)
PROC: 5A09357 Assistance with Respiratory Ventilation, Less than 24 Consecutive Hours, Continuous Positive Airway Pressure (ICD-10-PCS; 2024-07-19)
PROC: 03HY32Z Insertion of Monitoring Device into Upper Artery, Percutaneous Approach (ICD-10-PCS; 2024-07-20)
PROC: 5A1955Z Respiratory Ventilation, Greater than 96 Consecutive Hours (ICD-10-PCS; 2024-07-20)
PROC: 0BH17EZ Insertion of Endotracheal Airway into Trachea, Via Natural or Artificial Opening (ICD-10-PCS; 2024-07-20)
PROC: 3E033XZ Introduction of Vasopressor into Peripheral Vein, Percutaneous Approach (ICD-10-PCS; 2024-07-20)
PROC: 02HV33Z Insertion of Infusion Device into Superior Vena Cava, Percutaneous Approach (ICD-10-PCS; 2024-07-21)
PROC: 5A1D70Z Performance of Urinary Filtration, Intermittent, Less than 6 Hours Per Day (ICD-10-PCS; 2024-07-21)
PROC: 4A133R1 Monitoring of Arterial Saturation, Peripheral, Percutaneous Approach (ICD-10-PCS; 2024-07-26)
DX: A41.9 Sepsis, unspecified organism (principal); J80 Acute respiratory distress syndrome; R65.21 Severe sepsis with septic shock; J10.00 Influenza due to other identified influenza virus with unspecified type of pneumonia; J18.9 Pneumonia, unspecified organism; N17.0 Acute kidney failure with tubular necrosis; E87.4 Mixed disorder of acid-base balance; D68.9 Coagulation defect, unspecified; I27.21 Secondary pulmonary arterial hypertension; R16.0 Hepatomegaly, not elsewhere classified; D63.8 Anemia in other chronic diseases classified elsewhere; D69.59 Other secondary thrombocytopenia; Z11.52 Encounter for screening for COVID-19; E78.5 Hyperlipidemia, unspecified; I48.91 Unspecified atrial fibrillation; E11.51 Type 2 diabetes mellitus with diabetic peripheral angiopathy without gangrene; I10 Essential (primary) hypertension; R00.0 Tachycardia, unspecified; K75.81 Nonalcoholic steatohepatitis (NASH); R74.8 Abnormal levels of other serum enzymes; R79.89 Other specified abnormal findings of blood chemistry; R80.9 Proteinuria, unspecified; N40.0 Benign prostatic hyperplasia without lower urinary tract symptoms; Z86.16 Personal history of COVID-19; Z87.891 Personal history of nicotine dependence
CPT/HCPCS: 0223U; 36415; 36569; 36600; 71045; 71046; 71260; 74018; 76700; 80053; 81001; 81015; 81050; 82248; 82570; 82728; 82805; 82948; 83010; 83518; 83520; 83540; 83615; 83735; 83880; 84100; 84132; 84155; 84156; 84466; 85025; 85045; 85384; 85610; 85730; 86021; 86039; 86160; 86225; 86255; 86704; 86706; 86738; 87040; 87340; 87390; 87400; 87420; 87449; 93005; 93306; 93925; 94002; 94003; 94640; 94660; 94799; 99252; 99284; G0433; G0435; J0330; J1160; J1650; J1940; J2150; J2185; J2250; J2371; J2470; J2543; J2919; J2997; J7030; J7040; J7050; J7512; J7799; P9047; Q9967